=== PATIENT | male | born 1940 | race Caucasian/White ===

== ENCOUNTER → 2017-01-20 | Outpatient (CLI) | payer OTHER ==
[~2017-01-20] MED LIST: ALLO300T PO; ALPR0.254 PO; AMIO200T42 PO; AMLO10TA2 PO; ATOR80TA75 PO; AZIT-14 PO; BENZ100C PO; CARV3.1212 PO; CARV3.122 PO; CEFD300C2 PO; DOXY100T PO; FINA5TAB4 PO; HYDR1TAB12 PO; LOSA50TA6 PO; MECL25TA4 PO; PANT40TA3 PO; SULF1TAB24; TERA5CAP3 PO; WARF1TAB7 PO
== END | disposition home or self-care (01) ==
LOC: CFH 12:47
PROVIDERS: ATTEND Internal Medicine Nephrology
DX: N28.1 Cyst of kidney, acquired (principal); N18.4 Chronic kidney disease, stage 4 (severe); N26.1 Atrophy of kidney (terminal); N40.0 Benign prostatic hyperplasia without lower urinary tract symptoms
CPT/HCPCS: 76770

== ENCOUNTER 2017-03-20 08:26 | Observation (INO) | payer OTHER ==
[~2017-03-20] VITALS: Ht 180.3 cm; Wt 92.5 kg
[~2017-03-20 08:26] MED LIST changes: -AZIT-14 PO; +AZIT250T89 PO; -CEFD300C2 PO; +CEFD300C37 PO
[2017-03-20] MEDS ORDERED: SODIUM CHLORIDE FLUSH 10ML SYR IVF ONE (09:30)
[2017-03-20] MEDS ORDERED: SODIUM CHLORIDE 0.9% 1,000ML IVBOLUS ONE (09:30)
[2017-03-20 09:41] LABS: BLOOD UREA NITROGEN 33 mg/dL (7-18)
[2017-03-20 09:45] LABS: ASPARTATE AMINO TRANSFERASE 45 U/L (15-37)
[2017-03-20] MEDS ORDERED: HYDR-3341 PO (12:02)
[2017-03-20] MEDS ORDERED: BISACODYL 10 MG SUPP PR PRN (13:00)
[2017-03-20] MEDS ORDERED: HYDROcodone/APAP 5/325 TABLET PO PRN (13:00)
[2017-03-20] MEDS ORDERED: hydrALAzine 20 MG/ML, 1ML IVPush PRN (13:00)
[2017-03-20] MEDS ORDERED: ACETAMINOPHEN 325 MG TABLET PO PRN (13:00)
[2017-03-20 15:26] VITALS: BP 155/70
[2017-03-20] MEDS ORDERED: WARFARIN 5 MG TABLET PO-COUM ONE ×2 (15:30→18:00)
[2017-03-20 16:58] LABS: OCCBLD OBC PASS
[2017-03-20] MEDS ORDERED: WARFARIN 2 MG TABLET PO-COUM ONE (18:00)
[2017-03-20 19:12] VITALS: BP 142/71
[2017-03-20] MEDS ORDERED: TERAZOSIN 5MG CAPSULE PO SCH (21:00)
[2017-03-20] MEDS ORDERED: FINASTERIDE 5 MG TABLET PO SCH (21:00)
[2017-03-20] MEDS ORDERED: ATORVASTATIN 80 MG TABLET PO SCH (21:00)
[2017-03-21 02:08] VITALS: BP 138/65
[2017-03-21 05:19] LABS: BLOOD UREA NITROGEN 27 mg/dL (7-18)
[2017-03-21 08:16] VITALS: BP 146/76
[2017-03-21] MEDS ORDERED: AMIODARONE 200 MG TABLET PO SCH (09:00)
[2017-03-21] MEDS ORDERED: WARFARIN 1 MG TABLET PO-COUM SCH ×2 (09:00→18:00)
[2017-03-21] MEDS ORDERED: SENNA/DOCUSATE TABLET PO SCH (09:00)
[2017-03-21] MEDS ORDERED: AMLODIPINE 5 MG TABLET PO SCH (09:00)
[2017-03-21] MEDS ORDERED: ALLOPURINOL 300 MG TABLET PO SCH (09:00)
[2017-03-21 13:58] VITALS: BP 164/81
[2017-03-21] MEDS ORDERED: CARVEDILOL 3.125 MG TABLET PO SCH (18:00)
== END 2017-03-21 15:35 | disposition home or self-care (01) ==
LOC: ED 10:29 → INTOOBSV 12:07 → EDIP 12:07 → 4WST 14:10 → DCLOUNGE 03-21 15:09
PROVIDERS: ADMIT Family Medicine; ATTEND Family Medicine
DX: R00.1 Bradycardia, unspecified (principal); R10.84 Generalized abdominal pain; N18.4 Chronic kidney disease, stage 4 (severe); E10.22 Type 1 diabetes mellitus with diabetic chronic kidney disease; I13.0 Hypertensive heart and chronic kidney disease with heart failure and stage 1 through stage 4 chronic kidney disease, or unspecified chronic kidney disease; I48.0 Paroxysmal atrial fibrillation; I25.10 Atherosclerotic heart disease of native coronary artery without angina pectoris; R63.4 Abnormal weight loss; D63.8 Anemia in other chronic diseases classified elsewhere; D68.69 Other thrombophilia; E78.5 Hyperlipidemia, unspecified; H35.30 Unspecified macular degeneration; H54.8 Legal blindness, as defined in USA; I25.2 Old myocardial infarction; I34.0 Nonrheumatic mitral (valve) insufficiency; I44.0 Atrioventricular block, first degree; Z95.5 Presence of coronary angioplasty implant and graft; Z83.3 Family history of diabetes mellitus; Z82.49 Family history of ischemic heart disease and other diseases of the circulatory system
CPT/HCPCS: 36415; 74022; 80048; 80053; 81003; 82272; 83036; 83690; 84443; 85025; 85610; 85730; 87324; 87338; 89055; 93005; 99285; G0378; J7030

== ENCOUNTER 2017-03-31 06:34 | Inpatient (IN) | payer OTHER ==
[~2017-03-31] VITALS: Ht 180.3 cm; Wt 92.0 kg
[~2017-03-31 06:34] MED LIST changes: +HYDR-3341 PO
[2017-03-31] MEDS ORDERED: SODIUM CHLORIDE 0.9% 1,000ML IVBOLUS ONE (07:30)
[2017-03-31 08:09] LABS: ASPARTATE AMINO TRANSFERASE 208 U/L (15-37); BLOOD UREA NITROGEN 27 mg/dL (7-18)
[2017-03-31 09:14] LABS: IS PT STATUS REG ER OR PRE ER? YES
[2017-03-31] MEDS ORDERED: CEFTRIAXONE PMX 1GM/50ML 50 ML IV SCH ×2 (11:30→15:00)
[2017-03-31 12:50] VITALS: BP 174/76
[2017-03-31 13:00] VITALS: BP 174/76
[2017-03-31] MEDS ORDERED: AMLODIPINE 5 MG TABLET PO ONE (15:00)
[2017-03-31] MEDS ORDERED: BISACODYL 10 MG SUPP PR PRN (15:30)
[2017-03-31] MEDS ORDERED: ACETAMINOPHEN 325 MG TABLET PO PRN (15:30)
[2017-03-31] MEDS ORDERED: FUROSEMIDE 20 MG/2 ML IV ONE (15:30)
[2017-03-31] MEDS ORDERED: POLYETHYLENE GLYCOL 17 GM PACKET PO PRN (15:30)
[2017-03-31] MEDS: CARVEDILOL 3.125 MG TABLET PO SCH (16:18)
[2017-03-31 16:20] LABS: IS PT STATUS REG ER OR PRE ER? NO
[2017-03-31 17:43] LABS: PATH.CAST-FLAG NOT PRESENT; SPERM-FLAG NOT PRESENT; SRC-FLAG NOT PRESENT; XTAL-FLAG NOT PRESENT; YLC-FLAG NOT PRESENT
[2017-03-31] MEDS ORDERED: WARFARIN 2 MG TABLET PO-COUM SCH (18:00)
[2017-03-31 20:30] VITALS: BP 162/75
[2017-03-31] MEDS: ATORVASTATIN 80 MG TABLET PO SCH (20:54)
[2017-03-31] MEDS: FINASTERIDE 5 MG TABLET PO SCH (20:54)
[2017-03-31] MEDS: TERAZOSIN 5MG CAPSULE PO SCH (20:54)
[2017-03-31] MEDS ORDERED: DOCUSATE 100 MG CAPSULE PO PRN (21:00)
[2017-03-31 21:13] LABS: IS PT STATUS REG ER OR PRE ER? NO
[2017-04-01 02:03] VITALS: BP 150/69
[2017-04-01] MEDS: ASPIRIN 325 MG TABLET EC PO SCH (05:23)
[2017-04-01 05:34] LABS: BLOOD UREA NITROGEN 26 mg/dL (7-18)
[2017-04-01 05:46] LABS: ASPARTATE AMINO TRANSFERASE 270 U/L (15-37)
[2017-04-01 08:45] VITALS: BP 139/77
[2017-04-01] MEDS: CARVEDILOL 3.125 MG TABLET PO SCH ×2 (08:56→20:33)
[2017-04-01] MEDS: AMLODIPINE 5 MG TABLET PO SCH (08:57)
[2017-04-01] MEDS ORDERED: POTASSIUM CHLORIDE 20 MEQ TAB.ER.PRT PO ONE (12:00)
[2017-04-01] MEDS: NYSTATIN TOPICAL POWDER 15GM TP SCH ×2 (12:14→20:34)
[2017-04-01 15:50] VITALS: BP 170/75
[2017-04-01] MEDS ORDERED: WARFARIN 3 MG TABLET PO-COUM ONE (18:00)
[2017-04-01 19:00] VITALS: BP 173/66
[2017-04-01] MEDS: FINASTERIDE 5 MG TABLET PO SCH (20:33)
[2017-04-01] MEDS: TERAZOSIN 5MG CAPSULE PO SCH (20:33)
[2017-04-01] MEDS: ATORVASTATIN 80 MG TABLET PO SCH (20:33)
[2017-04-02 02:39] VITALS: BP 152/63
[2017-04-02 04:41] LABS: BLOOD UREA NITROGEN 25 mg/dL (7-18)
[2017-04-02 04:46] LABS: ASPARTATE AMINO TRANSFERASE 285 U/L (15-37)
[2017-04-02] MEDS: ASPIRIN 325 MG TABLET EC PO SCH (06:18)
[2017-04-02 08:02] VITALS: BP 153/75
[2017-04-02] MEDS: CARVEDILOL 3.125 MG TABLET PO SCH ×3 (08:10→20:41)
[2017-04-02] MEDS: AMLODIPINE 5 MG TABLET PO SCH (08:10)
[2017-04-02] MEDS: NYSTATIN TOPICAL POWDER 15GM TP SCH ×2 (08:10→20:41)
[2017-04-02] MEDS ORDERED: GADOBUTROL 10 MMOL/10 ML VIAL ONE (11:30)
[2017-04-02 13:44] VITALS: BP 150/81
[2017-04-02] MEDS ORDERED: WARFARIN 3 MG TABLET PO-COUM ONE (15:00)
[2017-04-02 20:19] VITALS: BP 175/64
[2017-04-02] MEDS: FINASTERIDE 5 MG TABLET PO SCH (20:41)
[2017-04-02] MEDS: TERAZOSIN 5MG CAPSULE PO SCH (20:41)
[2017-04-03 01:15] VITALS: BP 162/70
[2017-04-03] MEDS: ASPIRIN 325 MG TABLET EC PO SCH (04:58)
[2017-04-03 05:41] LABS: BLOOD UREA NITROGEN 24 mg/dL (7-18)
[2017-04-03 05:44] LABS: ASPARTATE AMINO TRANSFERASE 229 U/L (15-37)
[2017-04-03 08:37] VITALS: BP 147/55
[2017-04-03] MEDS: CARVEDILOL 3.125 MG TABLET PO SCH (09:00)
[2017-04-03] MEDS: AMLODIPINE 5 MG TABLET PO SCH (09:58)
[2017-04-03] MEDS: NYSTATIN TOPICAL POWDER 15GM TP SCH (09:59)
[2017-04-03 13:58] VITALS: BP 129/64
[2017-04-03] MEDS ORDERED: WARFARIN 2 MG TABLET PO-COUM ONE (18:00)
== END 2017-04-03 15:37 | disposition home or self-care (01) | DRG 280 ==
LOC: ED 08:17 → EDIP 11:03 → 5SO 12:41
PROVIDERS: ADMIT Hospitalist; ATTEND Internal Medicine
DX: I13.0 Hypertensive heart and chronic kidney disease with heart failure and stage 1 through stage 4 chronic kidney disease, or unspecified chronic kidney disease (principal); J96.01 Acute respiratory failure with hypoxia; I21.4 Non-ST elevation (NSTEMI) myocardial infarction; D68.69 Other thrombophilia; I48.0 Paroxysmal atrial fibrillation; D63.8 Anemia in other chronic diseases classified elsewhere; E10.22 Type 1 diabetes mellitus with diabetic chronic kidney disease; E78.00 Pure hypercholesterolemia, unspecified; E78.5 Hyperlipidemia, unspecified; H35.30 Unspecified macular degeneration; H54.8 Legal blindness, as defined in USA; I25.10 Atherosclerotic heart disease of native coronary artery without angina pectoris; I44.0 Atrioventricular block, first degree; I50.9 Heart failure, unspecified; J44.9 Chronic obstructive pulmonary disease, unspecified; M10.9 Gout, unspecified; N18.3 Chronic kidney disease, stage 3 (moderate); N40.0 Benign prostatic hyperplasia without lower urinary tract symptoms; R62.7 Adult failure to thrive; Z79.01 Long term (current) use of anticoagulants; Z79.4 Long term (current) use of insulin; Z80.1 Family history of malignant neoplasm of trachea, bronchus and lung; Z87.442 Personal history of urinary calculi; I25.2 Old myocardial infarction; Z90.49 Acquired absence of other specified parts of digestive tract; Z95.5 Presence of coronary angioplasty implant and graft; Z88.5 Allergy status to narcotic agent
CPT/HCPCS: 36415; 71010; 74183; 76705; 80053; 81001; 82728; 83540; 83550; 83605; 83735; 83880; 84100; 84145; 84484; 85025; 85610; 86704; 86706; 86708; 86803; 87040; 87070; 87205; 87340; 93005; 96360; A9585; J0696; J1940; J7030

== ENCOUNTER → 2017-04-26 | Outpatient (CLI) | payer OTHER ==
[~2017-04-26] MED LIST changes: +FURO-93 PO
== END | disposition home or self-care (01) ==
LOC: CFH 13:17
PROVIDERS: ATTEND Internal Medicine Cardiovascular Disease
DX: I08.3 Combined rheumatic disorders of mitral, aortic and tricuspid valves (principal)
CPT/HCPCS: 93306

== ENCOUNTER 2017-05-09 18:49 | Inpatient (IN) | payer OTHER ==
[~2017-05-09] VITALS: Ht 177.8 cm; Wt 105.5 kg
[~2017-05-09 18:49] MED LIST changes: +ATOR-2 PO; -ATOR80TA75 PO
[2017-05-09] MEDS ORDERED: SODIUM CHLORIDE FLUSH 10ML SYR IVF ONE (19:00)
[2017-05-09] MEDS: PLEASE ENTER HEIGHT AND WEIGHT MC SCH ×2 (19:04→22:48)
[2017-05-09 19:16] LABS: HEMATOCRIT 41.6 % (39.2-51.8); HEMOGLOBIN 13.4 g/dL (13.7-18.0); WHITE BLOOD COUNT 7.4 x10^3/uL (3.4-10)
[2017-05-09 19:25] LABS: BLOOD UREA NITROGEN 22 mg/dL (7-18)
[2017-05-09] MEDS ORDERED: POTASSIUM CHLORIDE 20 MEQ TAB.ER.PRT PO ONE (20:00)
[2017-05-09] MEDS ORDERED: NS + 20MEQ KCL 1,000 ML IV SCH (20:03)
[2017-05-09] MEDS ORDERED: AMLO10TA2 PO (20:05)
[2017-05-09] MEDS ORDERED: ATOR20TA9 PO (20:07)
[2017-05-09] MEDS ORDERED: POTASSIUM CHLORIDE 20 MEQ TAB.ER.PRT ONE (20:08)
[2017-05-09] MEDS ORDERED: ACETAMINOPHEN 325 MG TABLET PO PRN (20:30)
[2017-05-09] MEDS ORDERED: DOCUSATE 100 MG CAPSULE PO PRN (20:30)
[2017-05-09] MEDS ORDERED: hydrALAzine 20 MG/ML, 1ML IVPush PRN (20:30)
[2017-05-09] MEDS ORDERED: POLYETHYLENE GLYCOL 17 GM PACKET PO PRN (20:30)
[2017-05-09] MEDS ORDERED: GUAIFENESIN/DM 200-20MG, 10ML UDC PO PRN (20:30)
[2017-05-09] MEDS ORDERED: BISACODYL 10 MG SUPP PR PRN (20:30)
[2017-05-09 20:48] VITALS: BP 153/85
[2017-05-09] MEDS: ATORVASTATIN 20 MG TABLET PO SCH (22:19)
[2017-05-09] MEDS: TERAZOSIN 5MG CAPSULE PO SCH (22:19)
[2017-05-09] MEDS: FINASTERIDE 5 MG TABLET PO SCH (22:19)
[2017-05-09] MEDS: SODIUM CHLORIDE 0.9% 1,000 ML IV SCH (22:48)
[2017-05-10 01:04] VITALS: BP 138/71
[2017-05-10 05:17] LABS: BLOOD UREA NITROGEN 20 mg/dL (7-18)
[2017-05-10 08:07] VITALS: BP 150/78
[2017-05-10] MEDS ORDERED: CEFAZOLIN PMX 1GM/50ML 50 ML IVPB ONE (08:30)
[2017-05-10] MEDS ORDERED: PHYTONADIONE 10 MG/ML, 1ML SQ ONE (08:30)
[2017-05-10] MEDS: AMLODIPINE 5 MG TABLET PO SCH (08:39)
[2017-05-10] MEDS: ALLOPURINOL 300 MG TABLET PO SCH (08:39)
[2017-05-10] MEDS: SODIUM CHLORIDE 0.9% 1,000 ML IV SCH ×4 (08:45→17:31)
[2017-05-10] MEDS: PLEASE ENTER HEIGHT AND WEIGHT MC SCH (11:00)
[2017-05-10 14:17] VITALS: BP 153/73
[2017-05-10] MEDS: FUROSEMIDE 20 MG TABLET PO SCH (17:31)
[2017-05-10] MEDS ORDERED: HYDROcodone/APAP 5/325 TABLET PO ONE (18:30)
[2017-05-10 18:51] VITALS: BP 158/72
[2017-05-10] MEDS: TERAZOSIN 5MG CAPSULE PO SCH (20:28)
[2017-05-10] MEDS: FINASTERIDE 5 MG TABLET PO SCH (20:28)
[2017-05-10] MEDS: ATORVASTATIN 20 MG TABLET PO SCH (20:28)
[2017-05-11] MEDS: SODIUM CHLORIDE 0.9% 1,000 ML IV SCH ×5 (02:00→15:00)
[2017-05-11 02:01] VITALS: BP 150/76
[2017-05-11 07:20] VITALS: BP 142/78
[2017-05-11] MEDS ORDERED: FENTANYL PF 100 MCG/2ML ONE (07:58)
[2017-05-11] MEDS ORDERED: MIDAZOLAM 1 MG/ML, 5ML ONE (07:58)
[2017-05-11] MEDS ORDERED: CEFAZOLIN PMX 1GM/50ML 50 ML ONE (07:59)
[2017-05-11] MEDS ORDERED: LIDOCAINE 2%, 20ML ONE (07:59)
[2017-05-11] MEDS ORDERED: CEFAZOLIN 1,000 MG ONE (07:59)
[2017-05-11] MEDS: CEFAZOLIN PMX 1GM/50ML 50 ML IVPB SCH ×2 (09:00→20:16)
[2017-05-11] MEDS ORDERED: HYDROcodone/APAP 5/325 TABLET PO PRN (11:30)
[2017-05-11 12:43] VITALS: BP 144/79
[2017-05-11] MEDS ORDERED: FUROSEMIDE 40 MG TABLET ONE (14:44)
[2017-05-11] MEDS: SODIUM CHLORIDE FLUSH 10ML SYR IVF SCH ×2 (14:52→20:17)
[2017-05-11] MEDS: ALLOPURINOL 300 MG TABLET PO SCH (14:53)
[2017-05-11] MEDS: AMLODIPINE 5 MG TABLET PO SCH (14:53)
[2017-05-11] MEDS: FUROSEMIDE 20 MG TABLET PO SCH (14:54)
[2017-05-11 19:22] VITALS: BP 164/69
[2017-05-11] MEDS: ATORVASTATIN 20 MG TABLET PO SCH (20:17)
[2017-05-11] MEDS: FINASTERIDE 5 MG TABLET PO SCH (20:17)
[2017-05-11] MEDS: TERAZOSIN 5MG CAPSULE PO SCH (20:18)
[2017-05-12] MEDS: SODIUM CHLORIDE 0.9% 1,000 ML IV SCH ×2 (02:00→10:00)
[2017-05-12 02:07] VITALS: BP 156/79
[2017-05-12] MEDS: CEFAZOLIN PMX 1GM/50ML 50 ML IVPB SCH (03:54)
[2017-05-12 06:58] VITALS: BP 157/78
[2017-05-12] MEDS: FUROSEMIDE 20 MG TABLET PO SCH (09:18)
[2017-05-12] MEDS: SODIUM CHLORIDE FLUSH 10ML SYR IVF SCH (09:18)
[2017-05-12] MEDS: AMLODIPINE 5 MG TABLET PO SCH (09:18)
[2017-05-12] MEDS: ALLOPURINOL 300 MG TABLET PO SCH (09:18)
== END 2017-05-12 11:55 | disposition home or self-care (01) | DRG 242 ==
LOC: ED 19:31 → EDIP 19:44 → 5SO 20:42 → DCLOUNGE 05-12 11:26
PROVIDERS: ADMIT Family Medicine; ATTEND Family Medicine
PROC: 0JH606Z Insertion of Pacemaker, Dual Chamber into Chest Subcutaneous Tissue and Fascia, Open Approach (ICD-10-PCS; principal; 2017-05-11)
PROC: 02HK3JZ Insertion of Pacemaker Lead into Right Ventricle, Percutaneous Approach (ICD-10-PCS; 2017-05-11)
PROC: 02H63JZ Insertion of Pacemaker Lead into Right Atrium, Percutaneous Approach (ICD-10-PCS; 2017-05-11)
DX: I49.5 Sick sinus syndrome (principal); N17.0 Acute kidney failure with tubular necrosis; N18.4 Chronic kidney disease, stage 4 (severe); D68.69 Other thrombophilia; E10.22 Type 1 diabetes mellitus with diabetic chronic kidney disease; I13.0 Hypertensive heart and chronic kidney disease with heart failure and stage 1 through stage 4 chronic kidney disease, or unspecified chronic kidney disease; I50.30 Unspecified diastolic (congestive) heart failure; I48.91 Unspecified atrial fibrillation; J44.9 Chronic obstructive pulmonary disease, unspecified; D63.8 Anemia in other chronic diseases classified elsewhere; I25.10 Atherosclerotic heart disease of native coronary artery without angina pectoris; E87.6 Hypokalemia; N40.0 Benign prostatic hyperplasia without lower urinary tract symptoms; E78.00 Pure hypercholesterolemia, unspecified; E78.5 Hyperlipidemia, unspecified; I25.2 Old myocardial infarction; Z79.01 Long term (current) use of anticoagulants; Z79.4 Long term (current) use of insulin; Z80.1 Family history of malignant neoplasm of trachea, bronchus and lung; Z82.49 Family history of ischemic heart disease and other diseases of the circulatory system; Z87.891 Personal history of nicotine dependence; Z95.0 Presence of cardiac pacemaker; Z95.5 Presence of coronary angioplasty implant and graft; Z86.73 Personal history of transient ischemic attack (TIA), and cerebral infarction without residual deficits; Z90.49 Acquired absence of other specified parts of digestive tract; Z88.6 Allergy status to analgesic agent
CPT/HCPCS: 33208; 36415; 71010; 71020; 80048; 82040; 83735; 85025; 85610; 93005; 99156; 99157; 99285; C1779; C1785; C1892; J0690; J2250; J3010; J3430; J3490; J7030

== ENCOUNTER → 2017-06-23 | Outpatient (CLI) | payer OTHER ==
[~2017-06-23] MED LIST changes: +ATOR20TA9 PO
[2017-06-23 12:24] LABS: HEMOGLOBIN 13.5 g/dL (13.7-18.0); WHITE BLOOD COUNT 6.5 x10^3/uL (3.4-10)
== END | disposition home or self-care (01) ==
LOC: STAR 11:22 → MERGE 11:30
PROVIDERS: ATTEND Internal Medicine Gastroenterology
DX: Z01.818 Encounter for other preprocedural examination (principal); R10.84 Generalized abdominal pain
CPT/HCPCS: 36415; 85025; 85610; 85730; 93005

== ENCOUNTER 2017-06-27 08:02 | Day surgery (SDC) | payer OTHER ==
[~2017-06-27] VITALS: Ht 177.8 cm; Wt 84.5 kg
[2017-06-27] MEDS ORDERED: LACTATED RINGERS 1,000 ML IV SCH (08:50)
[2017-06-27 09:24] VITALS: BP 179/82
[2017-06-27] MEDS ORDERED: FENTANYL PF 100 MCG/2ML ONE (10:00)
[2017-06-27] MEDS ORDERED: PROPOFOL 10 MG/ML, 20ML ONE (10:23)
== END 2017-06-27 12:20 ==
LOC: OUT 08:02 → MERGE 10:00 → OUT 12:20
PROVIDERS: ATTEND Internal Medicine Gastroenterology
DX: D12.4 Benign neoplasm of descending colon (principal); D12.5 Benign neoplasm of sigmoid colon; K57.30 Diverticulosis of large intestine without perforation or abscess without bleeding; K29.50 Unspecified chronic gastritis without bleeding; K21.9 Gastro-esophageal reflux disease without esophagitis; N40.0 Benign prostatic hyperplasia without lower urinary tract symptoms; I25.10 Atherosclerotic heart disease of native coronary artery without angina pectoris; I10 Essential (primary) hypertension; I25.2 Old myocardial infarction; Z95.0 Presence of cardiac pacemaker; Z90.49 Acquired absence of other specified parts of digestive tract; Z98.890 Other specified postprocedural states
CPT/HCPCS: 36415; 43239; 45385; 85610; 85730; 88305; J2704; J3010; J7120

== ENCOUNTER → 2018-04-18 | Outpatient (CLI) | payer OTHER ==
[~2018-04-18] MED LIST changes: +REGADENOSON 0.4 MG/5 ML SYRINGE ONE; -WARF1TAB7 PO; +WARF1TAB74 PO
== END | disposition home or self-care (01) ==
LOC: CFH 11:45
PROVIDERS: ATTEND Internal Medicine Cardiovascular Disease
DX: I25.9 Chronic ischemic heart disease, unspecified (principal); I25.10 Atherosclerotic heart disease of native coronary artery without angina pectoris
CPT/HCPCS: 78452; 93017; A9502; J2785